=== PATIENT | female | born 1970 | race Caucasian/White ===

== ENCOUNTER 2016-11-13 08:37 | Observation (INO) | payer SELFPAY ==
[2016-11-13 08:43] VITALS: BMI 52.7
[2016-11-13 09:00] LABS: AUTOMATED BASOPHIL 1.8 % (0-2); AUTOMATED EOSINOPHIL 1.3 % (0-5); AUTOMATED LYMPH 25.1 % (17-44); AUTOMATED MONOCYTE 8.2 % (3-10); AUTOMATED NEUTROPHIL 63.6 % (45-76); MPV 7.7 fL (7.4-10.4)
[2016-11-13 09:13] LABS: ETOH-MGDL < 10 mg/dL; SODIUM LEVEL 138 mEq/L (137-146)
[2016-11-13 09:14] LABS: BLOOD UREA NITROGEN 12 MG/DL (7-17); CALC CORRECTED 9.2 MG/DL (8.4-10.2); CALCIUM 8.5 MG/DL (8.4-10.2); CALCULATED OSMOLALITY 266 MOs/Kg (270-290); CHLORIDE 105 mEq/L (98-107); GLUCOSE 101 mg/dL (70-99); TOTAL PROTEIN 7.3 G/DL (6.3-8.2)
[2016-11-13] MEDS ORDERED: KETOROLAC TROMETHAMINE 60 MG/2 ML SDV IM ONE (09:14)
[2016-11-13] MEDS ORDERED: DIPHENHYDRAMINE 50 MG/ML VIAL IM ONE (09:14)
[2016-11-13] MEDS ORDERED: METOCLOPRAMIDE 10 MG/2 ML VIAL IM ONE (09:14)
--- NOTE | 2016-11-13 09:17 | EDPRACDOC ---
- General Information Chief Complaint: Headache Stated Complaint: HEADACHE/ PSYCH EVAL Time Seen by Provider: 11/13/16 09:08 Information Source: Patient Mode of Arrival: Car Allergies/Adverse Reactions: Allergies Allergy/AdvReac Type Severity Reaction Status Date / Time No Known Allergies Allergy Verified 11/13/16 08:43 - History of Present Illness Onset: 2 WKS HPI: Pt c/o generalized headache x 2 weeks with blurred vision and nausea. Pt c/o SI with plan to cut her wrists, HI with plans to "get into fights". Denies hallucinations, fever, earache, sore throat, congestion, cough, cp, sob, abd pain, changes in bowel or bladder, rash. Pt states she has been off her meds for months. Reason for Seeking Treatment: Self-referral Presents With: Reports: Depression, Suicidal Ideation, Homicidal Ideation Expresses: Reports: Suicidal Plan Suicidal Plan: Reports: Laceration Relevant History: Reports: Depression, Bipolar Medication Compliance: No Able to Care for Self: No Able to Control Self: No Associated Signs and Symptoms: Reports: Depression ED Past Medical History - History Reviewed Yes Nurses notes reviewed and agree except as marked - Patient Medical History Respiratory History: Reports: Asthma, COPD GI/ History: Reports: Gastroesophageal Reflux Psychological History: Denies: Depression Systemic History: Reports: Hyperthyroidism Surgical History: Reports: Cholecystectomy. Denies: Hysterectomy - Social Medical History Smoking Status: Former smoker ETOH: None Substance Abuse: None EDM Review of Systems - Review of Systems Constitutional: No Symptoms Reported. negative: Fever, Chills, Weakness, Fatigue, Loss of Appetite Eyes: Blurred Vision Ears: No Symptoms Reported. negative: Pain, Hearing Loss, Drainage, Ear Pulling Throat: No Symptoms Reported. negative: Pain, Swelling Nose: No Symptoms Reported. negative: Congestion, Bleeding, Discharge, Injection, Swelling, Deformity, Ecchymosis, Tender, Abrasion, Laceration Mouth: No Symptoms Reported. negative: Pain, Drooling Respiratory: No Symptoms Reported. negative: Cough, Brassy Cough, Barky Cough, Shortness of Breath, Wheezing, Hemoptysis Cardiovascular: No Symptoms Reported. negative: Chest Pain, Palpitations, Syncope, Edema, Orthopnea, PND, Skin Mottling, Cyanosis Gastrointestinal: Nausea Genitourinary: No Symptoms Reported. negative: Dysuria, Hematuria, Frequency, Discharge, Bleeding, Testicular Pain, Neurological: Headache Musculoskeletal: No Symptoms Reported. negative: Neck, Chestwall, Ribs, Back, Shoulder, Arm, Elbow, Forearm, Wrist, Hand, Pelvis, Hip, Femur, Knee, Leg, Ankle , Foot Integumentary: No Symptoms Reported. negative: Itching, Rash, Bruising, Wound Allergic/Immunologic: No Symptoms Reported. negative: Hives, Itching Hematologic: No Symptoms Reported. negative: Lymphadenopathy, Easy Bruising, Easy Bleeding Psychiatric: Depression, Suicidal. negative: No Symptoms Reported, Anxiety, Hallucinations, Insomnia - Physical Exam Constitutional: Alert Oriented to: Time, Person, Place Last recorded Vital Signs: Last Vital Signs Temp 97.5 F 11/13/16 08:39 Pulse 100 11/13/16 08:54 Resp 20 11/13/16 08:54 BP 156/105 H 11/13/16 08:54 Pulse Ox 98 11/13/16 08:54 Oxygen Pulse Oxygen Saturation 98 O2 Device Room Air Oxygen Flow Rate Fraction of Inspired Oxygen ( FIO2) - HEENT Head: Normal ( normocephalic) Eye Exam: Normal (PERRL, EOMI, Sclera white) Oropharynx: Normal (Pharynx:Moist without exudate,Gums-no swelling) Tympanic Membrane: Normal ENT EAC: Normal TMJ: Normal Nose: No Symptoms Reported (septum midline) Neck: Normal (FROM, trachea at midline) - Respiratory/Cardiovascular Respiratory: Normal - CTA (BBS clear to auscultation without adventitious sounds ) Cardiovascular: Normal (RRR without murmur, gallop or rub) - GI Auscultation: Normal (NABS) Palpation: Normal (Soft,No rebound or guarding, non distended) Tenderness: Non tender - Musculoskeletal Back: Normal (Non-Tender) Extremities: Normal (Normal tone, Pulses 2+ No cyanosis or edema, FROM) - Integumentary Skin: Normal, Warm, Dry Lymphatics: Normal (no adenopathy) - Neurologic Memory Impaired: Normal Motor Function: Normal (Normal tone, Pulses 2+ No cyanosis or edema, FROM) Cranial Nerve: Normal (CN II-X11 intact sensation, strength 5/5) Cerebellar: Normal Mood Description: Normal Perception: Normal Initial Evaluation Apperance: Casual Attitude: Cooperative Mood: Euthymic Affect: Congruent w/ mood Insight: Good Judgement: Good Memory Description: Intact Depressive Symptoms: Reports: Sadness Delusion Description: Reports: Not Present Hallucination Type: Reports: None Hallucinations Severity: Reports: None Hallucinations affecting more than one sensory system: No Recommend /or Refer: Involuntary Commitment - Differential Diagnosis Bipolar disorder, Depression, Homicidal, Suicidal - Results 11/13/16 08:48 11/13/16 08:48 WBC 11.4 xk/uL (3.8-10.8) H 11/13/16 08:48 RBC 4.43 xM/uL (4.20-5.40) 11/13/16 08:48 Hgb 13.7 g/dL (12.0-16.0) 11/13/16 08:48 Hct 41.1 % (36-47) 11/13/16 08:48 MCV 93 fL (81-99) 11/13/16 08:48 MCH 30.9 pg (27-32) 11/13/16 08:48 MCHC 33.4 g/dl (33-36) 11/13/16 08:48 RDW 13.7 % (11.5-14.5) 11/13/16 08:48 Plt Count 337 xk/uL (130-400) 11/13/16 08:48 MPV 7.7 fL (7.4-10.4) 11/13/16 08:48 Neut % (Auto) 63.6 % (45-76) 11/13/16 08:48 Lymph % (Auto) 25.1 % (17-44) 11/13/16 08:48 Bertie % (Auto) 8.2 % (3-10) 11/13/16 08:48 Eos % (Auto) 1.3 % (0-5) 11/13/16 08:48 Baso % (Auto) 1.8 % (0-2) 11/13/16 08:48 Absolute Neuts (auto) 7.18 xk/uL (1.7-8.2) 11/13/16 08:48 Absolute Lymphs (auto) 2.85 xk/uL (0.65-4.75) 11/13/16 08:48 Lab Results 11/13/16 08:48 WBC 11.4 H RBC 4.43 Hgb 13.7 Hct 41.1 MCV 93 MCH 30.9 MCHC 33.4 RDW 13.7 Plt Count 337 MPV 7.7 Neut % (Auto) 63.6 Lymph % (Auto) 25.1 Bertie % (Auto) 8.2 Eos % (Auto) 1.3 Baso % (Auto) 1.8 Absolute Neuts (auto) 7.18 Absolute Lymphs (auto) 2.85 - Departure Disposition: Admit to [facility] Condition: Stable Final Diagnosis: Migraine, Suicidal ideation, Homicidal ideation, Non compliance w medication regimen Major depression Qualifiers: Major depression recurrence: single episode Active/Remission status: currently active Major depression episode severity: moderate Qualified Code(s): F32.1 - Major depressive disorder, single episode, moderate Education/Counseling Given To: Patient Education/Counseling Given Regarding: Diagnosis, Treatment Referrals: None,No Provider [Primary Care Provider] - One Week - Physician Consulted Behavioral Health Time Called: 09:36 Consult Reason: mental health eval *ED Obs Orders - Orders Orders: 11/13/16 09:14 Diphenhydramine [Benadryl] 25 mg IM NOW ONE Ketorolac Tromethamine [Toradol] 60 mg IM NOW ONE Metoclopramide [Reglan] 10 mg IM NOW ONE 11/13/16 09:34 Vital Signs-Unit Routine Routine Acetaminophen Tablet [TYLENOL Tablet] 650 mg PO Q6H PRN Aluminum;Magnesium;Simethicone [Maalox Plus, Mylanta] 30 ml PO Q3H PRN Ibuprofen Tablet [Motrin] 400 mg PO Q6H PRN Lorazepam [Ativan] 1 mg PO Q6H PRN Ondansetron HCl [Zofran] 4 mg PO Q6H PRN Zolpidem Tartrate [Ambien] 5 mg PO HS PRN TU Observation Routine Statement: As supervising physician I agree with this plan as developed by the Allied Health Practitioner.
[2016-11-13 09:28] LABS: AMORPHOUS OCC; LEUKOCYTES/URINE NEG (NEGATIVE); NITRITE/URINE NEG (NEGATIVE); URINE OCCULT BLOOD NEG (NEG/TRACE); WBC/URINE 0-2 (0-5)
[2016-11-13 09:32] LABS: ALL NEG? YES; MDMA* NEG (NEGATIVE); METHAMPHETAMINES NEG (NEGATIVE); OXYCODONE NEG (NEGATIVE)
[2016-11-13] MEDS ORDERED: ZOLPIDEM TARTRATE 5 MG TAB PO PRN (09:34)
[2016-11-13] MEDS ORDERED: ONDANSETRON HCL 4 MG ODT TAB PO PRN (09:34)
[2016-11-13] MEDS ORDERED: ACETAMINOPHEN 325 MG/TAB TABLET PO PRN (09:34)
[2016-11-13] MEDS ORDERED: Aluminum;Magnesium;Simethicone 30 ML UDC PO PRN (09:34)
[2016-11-13] MEDS: IBUPROFEN 400 MG TAB PO PRN (11:24)
[2016-11-13] MEDS: LORAZEPAM 1 MG TAB PO PRN (11:24)
[2016-11-13] MEDS: ALBUTEROL 6.7 GM MDI INH PRN (16:51)
[2016-11-13] MEDS ORDERED: TRAMADOL HCL 50 MG TAB PO ONE (22:00)
[2016-11-14] MEDS: LORAZEPAM 1 MG TAB PO PRN (08:50)
[2016-11-14] MEDS: IBUPROFEN 400 MG TAB PO PRN (08:53)
[2016-11-14] MEDS: ALBUTEROL 6.7 GM MDI INH PRN ×2 (09:03→15:03)
--- NOTE | 2016-11-14 12:03 | EDTUNOTE ---
Initial Evaluation Apperance: Casual Attitude: Cooperative Mood: Euthymic Affect: Congruent w/ mood Insight: Good Judgement: Good Memory Description: Intact Depressive Symptoms: Reports: Sadness Delusion Description: Reports: Not Present Hallucination Type: Reports: None Hallucinations Severity: Reports: None Hallucinations affecting more than one sensory system: No Recommend /or Refer: Involuntary Commitment - SOAP Note Patient Problems: Active Problems Homicidal ideation (Acute) R45.850 Major depression (Acute) F32.9 Migraine (Acute) G43.909 Non compliance w medication regimen (Acute) Z91.14 Suicidal ideation (Acute) R45.851 Time Seen By Provider: 08:31 SOAP Note: 0831 11/14/2016 S: PT PRESENT WITH THOUGHT OF SI AND HI. STATES SHE WOULD CUT HER WRIST AND GET INTO FIGHTS. O: 46 YEAR OLD FEMALE IN NO ACUTE DISTRESS. CARDIAC: RRR, NO GALLOP OR MURMUR NOTED CHEST/LUNGS: BILATERAL BREATH SOUNDS NOTED AND CLEAR ABDOMEN: SOFT, NON-TENDER, BOWEL SOUNDS NOTED A: SI, HI P: CONTINUE WITH PSYCH PLAN AND EVALUATION
--- NOTE | 2016-11-14 12:06 | TUDEPART ---
Discussion of OBS Stay: 0831 11/14/2016 S: PT PRESENT WITH THOUGHT OF SI AND HI. STATES SHE WOULD CUT HER WRIST AND GET INTO FIGHTS. O: 46 YEAR OLD FEMALE IN NO ACUTE DISTRESS. CARDIAC: RRR, NO GALLOP OR MURMUR NOTED CHEST/LUNGS: BILATERAL BREATH SOUNDS NOTED AND CLEAR ABDOMEN: SOFT, NON-TENDER, BOWEL SOUNDS NOTED A: SI, HI P: CONTINUE WITH PSYCH PLAN AND EVALUATION Disposition: Psychiatric Facility Education/Counseling Given To: Patient Education/Counseling Given Regarding: Diagnosis, Treatment, Prognosis, Follow Up Decision to Transfer Time: 12:06 <Stephanie Caruso - Last Filed: 11/14/16 12:05> Time Seen By Provider: 16:03 Yes I personally saw and evaluated the patient. <Sudhakar Thomas - Last Filed: 11/14/16 16:07> Condition: Stable Follow-up / Referrals: Brian Ramos II, MD [Primary Care Provider] - Listed Time - Physical Exam Constitutional: Alert Oriented to: Time, Person, Place Last recorded Vital Signs: Last Vital Signs Temp 98.1 F 11/14/16 06:16 Pulse 87 11/14/16 06:16 Resp 18 11/14/16 06:16 BP 127/66 11/14/16 06:16 Pulse Ox 97 11/14/16 06:16 Oxygen Pulse Oxygen Saturation 97 O2 Device Room Air Oxygen Flow Rate Fraction of Inspired Oxygen ( FIO2) - HEENT Head: Normal ( normocephalic) Eye Exam: Normal (PERRL, EOMI, Sclera white) Oropharynx: Normal (Pharynx:Moist without exudate,Gums-no swelling) Tympanic Membrane: Normal ENT EAC: Normal TMJ: Normal Nose: No Symptoms Reported (septum midline) - Respiratory/Cardiovascular Respiratory: Normal - CTA (BBS clear to auscultation without adventitious sounds ) Cardiovascular: Normal (RRR without murmur, gallop or rub) - GI Auscultation: Normal (NABS) Palpation: Normal (Soft,No rebound or guarding, non distended) Tenderness: Non tender - Musculoskeletal Back: Normal (Non-Tender) Extremities: Normal (Normal tone, Pulses 2+ No cyanosis or edema, FROM) - Integumentary Skin: Normal, Warm, Dry Lymphatics: Normal (no adenopathy) - Neurologic Memory Impaired: Normal Motor Function: Normal (Normal tone, Pulses 2+ No cyanosis or edema, FROM) Cranial Nerve: Normal (CN II-X11 intact sensation, strength 5/5) Cerebellar: Normal Mood Description: Normal Perception: Normal <Stephanie Caruso - Last Filed: 11/14/16 12:05> - Physical Exam Last recorded Vital Signs: Last Vital Signs Temp 98.3 F 11/14/16 12:32 Pulse 94 11/14/16 12:32 Resp 16 11/14/16 12:32 BP 116/63 11/14/16 12:32 Pulse Ox 96 11/14/16 12:32 Oxygen Pulse Oxygen Saturation 96 O2 Device Room Air Oxygen Flow Rate Fraction of Inspired Oxygen ( FIO2) Other Exam Findings: No changes in clinical status or new information from previous documentation. Vital Signs: Temp:98.3 F HR: 94 BP: 116/63 RR: 16 Pox: 96%. Continue with current plan. Pt seen prior to DC at 1603. <Sudhakar Thomas - Last Filed: 11/14/16 16:07>
[2016-11-14] MEDS ORDERED: SERTRALINE HCL 100 MG TAB PO SCH (16:00)
[2016-11-14] MEDS ORDERED: GABAPENTIN 300 MG CAP PO SCH (16:00)
[2016-11-14] MEDS ORDERED: PANTOPRAZOLE 40 MG TAB PO SCH (16:00)
[2016-11-14] MEDS ORDERED: LEVOTHYROXINE 88 MCG (0.088 MG) TAB PO SCH (16:00)
[2016-11-14] MEDS ORDERED: Non-Formulary Medication ITEM (Gabapentin [Neurontin] 600 MG) PO SCH (16:00)
[2016-11-14 16:56] VITALS: BP 144/76; PULSE 108; TEMP 97.7
== END 2016-11-14 16:03 ==
LOC: ED 08:37 → EDINP 09:42 → TUOBSINP 20:37
PROVIDERS: ADMIT Physician Assistant Medical; ATTEND Physician Assistant Medical
DX: R45.851 Suicidal ideations (principal); R45.850 Homicidal ideations; F32.1 Major depressive disorder, single episode, moderate; G43.909 Migraine, unspecified, not intractable, without status migrainosus; J44.9 Chronic obstructive pulmonary disease, unspecified; J45.909 Unspecified asthma, uncomplicated; K21.9 Gastro-esophageal reflux disease without esophagitis; E05.90 Thyrotoxicosis, unspecified without thyrotoxic crisis or storm; Z91.14 Patient's other noncompliance with medication regimen
CPT/HCPCS: 36415; 80053; 80307; 81001; 85025; 86592; 94640; 96372; 99285; G0378; J1200; J1885; J2765; J3490